=== PATIENT | male | born 1980 | race Caucasian/White ===

== ENCOUNTER 2018-08-05 23:33 | Emergency (ER) | payer MEDICAID ==
[~2018-08-05] VITALS: Ht 175.3 cm; Wt 80.0 kg
[2018-08-05] MEDS ORDERED: BUPR100T13 PO (23:42)
[2018-08-05 23:52] VITALS: BP 125/80
[2018-08-06] MEDS ORDERED: LORAZEPAM 1MG TABLET PO ONE
== END 2018-08-06 00:33 | disposition home or self-care (01) ==
LOC: ER 23:33
DX: R51 Headache (principal); F41.9 Anxiety disorder, unspecified; Z98.890 Other specified postprocedural states
CPT/HCPCS: 99283; 99284

== ENCOUNTER 2023-08-06 23:45 | Emergency (ER) | payer MEDICAID, OTHER ==
[~2023-08-06] VITALS: Ht 172.7 cm; Wt 86.0 kg
[~2023-08-06 23:45] MED LIST: BUPR100T13 PO
[2023-08-06 23:48] VITALS: TEMP 98.2; O2SAT 97
[2023-08-07 00:15] VITALS: BP 132/84; PULSE 96; RESP 18
[2023-08-07] MEDS ORDERED: IBUPROFEN 600MG TABLET PO ONE (00:15)
[2023-08-07] MEDS ORDERED: IBUP-2029 MT (00:19)
== END 2023-08-07 00:39 | disposition home or self-care (01) ==
LOC: ER 23:45
DX: M79.671 Pain in right foot (principal); M79.672 Pain in left foot
CPT/HCPCS: 99283